=== PATIENT | female | born 1960 | race Caucasian/White ===

== ENCOUNTER → 2021-03-11 | Emergency (ER) | payer OTHER ==
[~2021-03-11] VITALS: Ht 170.2 cm; Wt 47.6 kg
[~2021-03-11] MED LIST: CODE473L6 PO; DOXY100C2 PO; FLUO10CA26 PO; OXYC-128 PO
--- NOTE | 2021-03-11 19:39 | NUR ---
MD Brower in room to do MSE.
--- NOTE | 2021-03-11 19:55 | NUR ---
generation technician in room to take x-rays of patient.
[2021-03-11 21:29] VITALS: BP 122/73
--- NOTE | 2021-03-11 21:29 | NUR ---
Patient discharged to home in stable condition. Written and verbal after care instructions given. Patient verbalizes understanding of instructions. Stressed follow up or return to ER for worsening s/s. Patient A&O x4, ambulating with steady gait. NAD noted
== END | disposition home or self-care (01) ==
LOC: ER 19:23
DX: J40 Bronchitis, not specified as acute or chronic (principal); M94.0 Chondrocostal junction syndrome [Tietze]; Z85.3 Personal history of malignant neoplasm of breast; Z92.3 Personal history of irradiation; Z92.21 Personal history of antineoplastic chemotherapy; Z91.013 Allergy to seafood
CPT/HCPCS: 71101; A4663